=== PATIENT | male | born 1960 ===

== ENCOUNTER 2022-05-09 06:53 | Inpatient (IN) ==
[2022-05-09] MEDS ORDERED: FUROSEMIDE 100 MG/10 ML VIAL IV STA (07:08)
[2022-05-09] MEDS ORDERED: NITROGLYCERIN SL 0.4 MG TABLET SL STA (07:46)
[2022-05-09] MEDS ORDERED: ACETAMINOPHEN 325 MG TABLET PO PRN (09:16)
[2022-05-09] MEDS ORDERED: ONDANSETRON 4 MG/2 ML VIAL IV PRN (09:16)
[2022-05-09] MEDS ORDERED: GLUCAGON 1 MG VIAL IM PRN (09:16)
[2022-05-09] MEDS ORDERED: CALCIUM CARBONATE CHEW 500 MG TABLET PO PRN (09:16)
[2022-05-09] MEDS ORDERED: BISACODYL 5 MG TABLET PO PRN (09:16)
[2022-05-09] MEDS ORDERED: DEXTROSE 10% 250 ML BAG IV PRN (09:27)
[2022-05-09] MEDS: ENOXAPARIN 30 MG/0.3 ML SYRINGE SUBCUT SCH (10:15)
[2022-05-09] MEDS: carvediloL 6.25 MG TABLET PO SCH ×2 (13:32→21:52)
[2022-05-09] MEDS: ISOSORBIDE MONONITRATE 30 MG TABLET PO SCH (13:32)
[2022-05-09] MEDS: INSULIN LISPRO 100 UNIT/ML SUBCUT SCH ×3 (13:40→21:52)
[2022-05-09] MEDS: hydrALAZINE 25 MG TABLET PO SCH ×2 (17:12→21:52)
[2022-05-09] MEDS: FUROSEMIDE 40 MG/4 ML VIAL IV SCH (21:52)
[2022-05-10 05:49] LABS: Basophils % 0.7 % (0.0-0.8); Eosinophils # 0.2 10*3/uL (0.0-0.87); Eosinophils % 3.4 % (0.00-10.9); Hematocrit 39.4 VOL% (42.0-52.0); Hemoglobin 13.1 GM/DL (14.0-18.0); Immature Granulocytes % 0.3 %; Immature Granulocytes Absolute 0.02 #; Lymphocytes % 17.2 % (21.2-54.2); Mean Corpuscular HGB Conc 33.2 GM/DL (32-36); Mean Corpuscular Volume 91.8 FL (87-102); Mean Platelet Volume 9.8 FL (9.6-12.0); Monocytes # 0.6 10*3/uL (0.11-0.8); Monocytes % 10.4 % (1.7-12.7); Platelet Count 200 T/CUMM (130-400); Red Blood Count 4.29 MC/CUMM (3.8-5.5); Red Cell Distribution Width 13.6 % (9.3-17.3); White Blood Count 5.9 T/CUMM (4-12)
[2022-05-10 06:53] LABS: Calcium 7.9 MG/DL (8.5-10.1); Osmolality,Calculated 296.3 MOS/KG (273-304); Potassium 3.8 MMOL/L (3.5-5.1)
[2022-05-10] MEDS: ISOSORBIDE MONONITRATE 30 MG TABLET PO SCH (09:22)
[2022-05-10] MEDS: hydrALAZINE 25 MG TABLET PO SCH ×3 (09:22→21:30)
[2022-05-10] MEDS: ASPIRIN EC 81 MG TABLET PO SCH (09:22)
[2022-05-10] MEDS: carvediloL 6.25 MG TABLET PO SCH ×2 (09:22→21:30)
[2022-05-10] MEDS: FUROSEMIDE 40 MG/4 ML VIAL IV SCH ×2 (09:23→16:38)
[2022-05-10] MEDS: ENOXAPARIN 30 MG/0.3 ML SYRINGE SUBCUT SCH (09:23)
[2022-05-10] MEDS: INSULIN LISPRO 100 UNIT/ML SUBCUT SCH ×4 (09:24→21:30)
[2022-05-10] MEDS: INSULIN GLARGINE 100 UNIT/ML SUBCUT SCH (21:30)
[2022-05-11 05:23] LABS: Basophils % 0.7 % (0.0-0.8); Eosinophils # 0.2 10*3/uL (0.0-0.87); Eosinophils % 3.4 % (0.00-10.9); Hematocrit 39.5 VOL% (42.0-52.0); Hemoglobin 12.9 GM/DL (14.0-18.0); Immature Granulocytes % 0.2 %; Immature Granulocytes Absolute 0.01 #; Lymphocytes # 1.1 10*3/uL (1.4-4.0); Lymphocytes % 18.3 % (21.2-54.2); Mean Corpuscular HGB Conc 32.7 GM/DL (32-36); Mean Corpuscular Volume 92.3 FL (87-102); Mean Platelet Volume 9.8 FL (9.6-12.0); Monocytes # 0.8 10*3/uL (0.11-0.8); Monocytes % 12.9 % (1.7-12.7); Neutrophils % 64.5 % (38.7-73.9); Platelet Count 214 T/CUMM (130-400); Red Blood Count 4.28 MC/CUMM (3.8-5.5); Red Cell Distribution Width 13.6 % (9.3-17.3)
[2022-05-11 05:43] LABS: Calcium 7.9 MG/DL (8.5-10.1); Osmolality,Calculated 292.5 MOS/KG (273-304); Potassium 3.5 MMOL/L (3.5-5.1)
[2022-05-11] MEDS: INSULIN LISPRO 100 UNIT/ML SUBCUT SCH ×4 (07:41→21:00)
[2022-05-11 07:58] LABS: Calcium 8.4 MG/DL (8.5-10.1); Osmolality,Calculated 289.7 MOS/KG (273-304); Potassium 3.9 MMOL/L (3.5-5.1)
[2022-05-11] MEDS: carvediloL 6.25 MG TABLET PO SCH ×2 (08:29→21:33)
[2022-05-11] MEDS: ISOSORBIDE MONONITRATE 30 MG TABLET PO SCH (08:29)
[2022-05-11] MEDS: ENOXAPARIN 30 MG/0.3 ML SYRINGE SUBCUT SCH (08:29)
[2022-05-11] MEDS: ASPIRIN EC 81 MG TABLET PO SCH (08:29)
[2022-05-11] MEDS: hydrALAZINE 25 MG TABLET PO SCH ×3 (08:29→21:33)
[2022-05-11] MEDS: FUROSEMIDE 40 MG/4 ML VIAL IV SCH ×2 (08:30→15:41)
[2022-05-11] MEDS: INSULIN GLARGINE 100 UNIT/ML SUBCUT SCH (21:00)
[2022-05-12 05:12] LABS: Basophils % 0.6 % (0.0-0.8); Eosinophils # 0.2 10*3/uL (0.0-0.87); Eosinophils % 3.1 % (0.00-10.9); Hematocrit 39.2 VOL% (42.0-52.0); Hemoglobin 12.7 GM/DL (14.0-18.0); Immature Granulocytes % 0.3 %; Immature Granulocytes Absolute 0.02 #; Lymphocytes # 1.5 10*3/uL (1.4-4.0); Mean Corpuscular HGB Conc 32.4 GM/DL (32-36); Mean Corpuscular Volume 92.2 FL (87-102); Mean Platelet Volume 9.7 FL (9.6-12.0); Monocytes # 0.8 10*3/uL (0.11-0.8); Monocytes % 13.1 % (1.7-12.7); Neutrophils % 59.9 % (38.7-73.9); Platelet Count 221 T/CUMM (130-400); Red Blood Count 4.25 MC/CUMM (3.8-5.5); Red Cell Distribution Width 13.5 % (9.3-17.3); White Blood Count 6.4 T/CUMM (4-12)
[2022-05-12 05:40] LABS: Osmolality,Calculated 290.8 MOS/KG (273-304); Potassium 3.5 MMOL/L (3.5-5.1)
[2022-05-12] MEDS: INSULIN LISPRO 100 UNIT/ML SUBCUT SCH (09:22)
[2022-05-12] MEDS: ASPIRIN EC 81 MG TABLET PO SCH (09:23)
[2022-05-12] MEDS: FUROSEMIDE 40 MG/4 ML VIAL IV SCH (09:23)
[2022-05-12] MEDS: ISOSORBIDE MONONITRATE 30 MG TABLET PO SCH (09:23)
[2022-05-12] MEDS: ENOXAPARIN 30 MG/0.3 ML SYRINGE SUBCUT SCH (09:23)
[2022-05-12] MEDS: carvediloL 6.25 MG TABLET PO SCH (09:23)
[2022-05-12] MEDS ORDERED: metOLazone 5 MG TABLET PO SCH (10:00)
[2022-05-12 12:12] VITALS: BP 119/78
== END 2022-05-12 14:10 | disposition home or self-care (01) | DRG 291 ==
LOC: N.ED 06:53 → SUATTDRO 09:17 → N.EDINP 09:17 → N.TELES 18:40
PROVIDERS: ADMIT Internal Medicine Geriatric Medicine; ATTEND Internal Medicine